=== PATIENT | female | born 1980 | race Caucasian/White ===

== ENCOUNTER 2020-02-21 10:33 | Emergency (ER) | payer OTHER, SELFPAY ==
--- NOTE | ~2020-02-21 | XR_ITS ---
EXAMINATION: XR chest 2V EXAM DATE: 02/21/2020 11:17 INDICATION: Cough and wheezing 1.5 months. TECHNIQUE: Frontal and lateral projections of the chest obtained and reviewed. There is no prior carl dy for comparison. FINDINGS: The lungs are clear. There are no pleural effusions. The cardiomediastinal silhouette is within normal limits. There is no pneumothorax suspected. The bones and soft tissues are unremarkab le. IMPRESSION: No acute cardiopulmonary findings. Reviewed, dictated and finalized at location A.
--- NOTE | 2020-02-21 10:38 | ED.URI ---
HPI - URI/Sore Throat General Chief Complaint: Upper Respiratory Infection Stated Complaint: right lung pain/cough Time Seen by Provider: 02/21/20 10:39 Source: patient and RN notes reviewed History of Present Illness HPI Narrative: Patient is a 39-year-old female who presents the urgent care with complaints of chest congestion, cough and intermittent wheezing. Patient states is been ongoing for approximately 1-1/2 months and she has followed up with her PCP. Patient was placed on a Z-Adonis 1 month ago and denies of any improvement. Patient states she does have a history of bronchitis and pneumonia and is also complaining of right lung pain . Patient denies of any shortness of breath or chest pain. No other acute complaints. No acute distress noted. Patient aware of the plan of care. Some parts of this dictation were generated by voice recognition software and may contain typographical and/or grammatical inaccuracies. Related Data Home Medications Medication Instructions Recorded Confirmed buprenorphine-naloxone film 02/21/20 buprenorphine-naloxone film 02/21/20 duloxetine mg PO 02/21/20 gabapentin 02/21/20 sumatriptan succinate mg PO 02/21/20 venlafaxine mg PO 02/21/20 Allergies Allergy/AdvReac Type Severity Reaction Status Date / Time Penicillins Allergy Intermediate Swelling Verified 02/21/20 10:53 codeine Allergy Unknown VOMITING Verified 02/21/20 10:53 Review of Systems Review of Systems: Narrative: CONSTITUTIONAL: Denies fever, chills, or sweats. EYES: Denies visual changes, redness, or discharge. ENT: Denies rhinorrhea, congestion, sore throat, or otalgia. CARDIOVASCULAR: Denies chest pain, palpitations, or edema. RESPIRATORY: Reports of cough with intermittent wheezing, denies dyspnea GASTROINTESTINAL: Denies abdominal pain, nausea, vomiting, or diarrhea. GENITOURINARY: Denies dysuria or hematuria. SKIN: Denies rash or itching. MUSCULOSKELETAL: Denies back pain, joint pain, or myalgia. NEUROLOGIC: Denies headache, numbness, or weakness. All other systems reviewed are negative, except as documented in HPI. PMFSH Comments At the time of my signature, I reviewed and agree with the nursing past medical, surgical, social, and family history. There is no relevant family history pertinent to the patient complaint. Exam Narrative: Exam Narrative: GENERAL: This is a well-nourished, well-developed patient, in no apparent distress. HEAD: normocephalic, atraumatic. EYES: PERRL. Sclera clear/white. Vision is grossly intact. EARS: External ears normal, auditory canals clear and without drainage, TMs normal without perforation. Hearing grossly intact. NOSE: External nose normal with no obvious nasal discharge, nares without redness, no rhinorrhea. THROAT: Mucous membranes moist, mild postnasal drainage with bilateral exudate NECK: Neck supple, CARDIOVASCULAR: Regular rate and rhythm without murmurs, gallops, or rubs. RESPIRATORY: Inspiratory and expiratory wheezes throughout, uniform bilaterally SKIN: warm, intact with no suspicious lesions or rash, good texture and turgor. NEURO: awake, alert, and oriented to person, place and time. There were no obvious focal neurologic abnormalities. EXTREMITIES: No clubbing, cyanosis, or edema. Course Vital Signs Vital signs: Vital Signs Temperature 98.5 F 02/21/20 10:50 Pulse Rate 81 02/21/20 10:50 Respiratory Rate 18 02/21/20 10:50 Blood Pressure 138/80 02/21/20 10:50 Pulse Oximetry 98 02/21/20 10:50 Temperature 98.5 F 02/21/20 10:50 Pulse Rate 81 02/21/20 10:50 Respiratory Rate 18 02/21/20 10:50 Blood Pressure 138/80 02/21/20 10:50 Pulse Oximetry 98 02/21/20 10:50 Reviewed MDM - URI/Sore Throat MDM Narrative Medical decision making narrative: Reviewed chest x-ray results with the patient. She is aware that chest x-ray was negative for pneumonia or any acute finding. Advised the patient to complete steroid regimen as prescribed.
[2020-02-21 10:50] VITALS: BP 138/80; PULSE 81; RESP 18; TEMP 36.9; O2SAT 98
== END 2020-02-21 11:55 | disposition home or self-care (01) ==
PROVIDERS: Emergency Provider Nurse Practitioner Family; PCP Physician Assistant
DX: J40 Bronchitis, not specified as acute or chronic (principal); I10 Essential (primary) hypertension; F41.9 Anxiety disorder, unspecified; F32.9 Major depressive disorder, single episode, unspecified
CPT/HCPCS: 71046; 99213; G0463